=== PATIENT | male | born 1980 | race Two or more races ===

== ENCOUNTER 2018-01-24 08:32 | Emergency (ER) | payer OTHER ==
[2018-01-24] MEDS ORDERED: IBUPROFEN 800 MG TABLET PO ONE (09:04)
--- NOTE | 2018-01-24 09:08 | ER Document Report ---
ED Extremity Problem, Lower - General Chief Complaint: Knee Pain Stated Complaint: KNEE PAIN Time Seen by Provider: 01/24/18 08:57 Mode of Arrival: Ambulatory Information source: Patient Notes: 37-year-old male presents to ED for complaint of left knee pain. He states he was playing soccer run and jump and bending and somehow his knee got injured during the game. He states it is very painful to walk on that leg now. States sometimes it hurts all the way up to the hip from the pain in his knee. Is alert and oriented speaking in full sentences. He speaks Tajik but is able to understand some of what I say his is at the bedside and explained everything that he says. TRAVEL OUTSIDE OF THE [place] IN LAST 30 DAYS: No - HPI Patient complains to provider of: Injury, Pain, Swelling Location: Knee Occurred: Yesterday Where: Outdoors, Sports Onset/Duration: Intermittent Quality of pain: Burning, Sharp Severity: Severe Pain Level: 5 Context: Twisted Recent injury: Yes Associated symptoms: Painful ambulation Exacerbated by: Hanging down, Movement, Walking Relieved by: Elevation, Ice, Rest - Related Data Allergies/Adverse Reactions: No Known Allergies Allergy (Unverified 01/24/18 08:34) Past Medical History - General Information source: Patient - Social History Smoking Status: Never Smoker Cigarette use (# per day): No Chew tobacco use (# tins/day): No Smoking Education Provided: No Frequency of alcohol use: None Drug Abuse: None 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 Lives with: Family Family History: Reviewed & Not Pertinent Patient has suicidal ideation: No Patient has homicidal ideation: No - Past Medical History Cardiac Medical History: Reports: Hx Hypercholesterolemia Pulmonary Medical History: Reports: None EENT Medical History: Reports: None Neurological Medical History: Reports: None Endocrine Medical History: Reports: None Renal/ Medical History: Reports: None Malignancy Medical History: Reports None GI Medical History: Reports: None Musculoskeletal Medical History: Reports None Skin Medical History: Reports None Psychiatric Medical History: Reports: None Traumatic Medical History: Reports: None Infectious Medical History: Reports: None Surgical Hx: Negative Past Surgical History: Reports: None - Immunizations Immunizations up to date: Yes Review of Systems - Review of Systems Constitutional: No symptoms reported EENT: No symptoms reported Cardiovascular: No symptoms reported Respiratory: No symptoms reported Gastrointestinal: No symptoms reported Genitourinary: No symptoms reported Male Genitourinary: No symptoms reported Musculoskeletal: Joint pain - left knee, Joint swelling - Left knee Skin: No symptoms reported Hematologic/Lymphatic: No symptoms reported Neurological/Psychological: No symptoms reported -: Yes All other systems reviewed and negative Physical Exam - Vital signs Vitals: Temp Pulse Resp BP Pulse Ox 99.6 F 56 L 16 126/70 H 96 01/24/18 08:38 01/24/18 08:38 01/24/18 08:38 01/24/18 08:38 01/24/18 08:38 Interpretation: Normal - General General appearance: Appears well, Alert - HEENT Head: Normocephalic, Atraumatic Eyes: Normal Pupils: PERRL - Respiratory Respiratory status: No respiratory distress Chest status: Nontender Breath sounds: Normal Chest palpation: Normal - Cardiovascular Rhythm: Regular Heart sounds: Normal auscultation Murmur: No - Abdominal Inspection: Normal Distension: No distension Bowel sounds: Normal Tenderness: Nontender Organomegaly: No organomegaly - Back Back: Normal, Nontender - Extremities General upper extremity: Normal inspection, Nontender, Normal color, Normal ROM , Normal temperature General lower extremity: Normal color, Normal temperature. No: Maurisio's sign Knee: Tender, Pain with ROM, Patellar tendon intact, Popliteal fossa tender, Tender joint line. No: Unable to bear weight - Pain with ambulation - Neurological Neuro grossly intact: Yes Cognition: Normal Orientation: AAOx4 [place] Coma Scale Eye Opening: Spontaneous [place] Coma Scale Verbal: Oriented [place] Coma Scale Motor: Obeys Commands [place] Coma Scale Total: 15 Speech: Normal Motor strength normal: LUE, RUE, LLE, RLE Sensory: Normal - Psychological Associated symptoms: Normal affect, Normal mood - Skin Skin Temperature: Warm Skin Moisture: Dry Skin Color: Normal Course - Vital Signs Vital signs: Temp Pulse Resp BP Pulse Ox 98.3 F 45 L 16 119/66 96 01/24/18 10:22 01/24/18 10:22 01/24/18 08:38 01/24/18 10:22 01/24/18 10:22 - Diagnostic Test Radiology reviewed: Image reviewed, Reports reviewed Procedures - Immobilization Left Knee Time completed: 10:16 Pre-Proc Neuro Vasc Exam: Normal Immobilizer type: Crutches, Knee immobilizer Performed by: RN Post-Proc Neuro Vasc Exam: Normal Alignment checked and good: Yes Discharge - Discharge Clinical Impression: Knee injury Qualifiers: Encounter type: initial encounter Laterality: left Qualified Code(s): S89.92XA - Unspecified injury of left lower leg, initial encounter Condition: Stable Disposition: HOME, SELF-CARE Additional Instructions: SUSPECTED INTERNAL KNEE INJURY: The examiner of your injured knee suspects an internal injury to the cartilage or internal ligaments. This must be further investigated by an internal controls specialist. The knee should be protected, ice packed, and elevated while awaiting your follow-up exam by the orthopedist. If there is severe swelling, severe pain, or any new symptoms while awaiting your exam, you should call the orthopedist. (If he/she is unavailable, call us or return for re-examination.) KNEE IMMOBILIZING SPLINT: The knee immobilizing splint will protect the injury while healing begins. This type of splint does not allow the knee to bend at all. No running or sports will be possible. If the splint allows painfree walking, it's giving adequate protection. If there is still significant pain, crutches may be needed as well. Don't do anything that hurts. Adjusted the splint, if necessary. The stiffeners on the sides are attached with Velcro, so they can be easily moved to adjust for thigh and calf size. If you need help with these adjustments, come back. You will lose muscle strength in the thigh while using this splint. The doctor will advise you if it's safe to do isometric knee exercises while you use it. USE OF CRUTCHES: The doctor has recommended that you not bear weight at this time. You will need to use crutches. Adjust the crutches so the tops come to about two inches under the armpit while you are standing upright. Use your hands -- not your armpits -- to support your weight. To get into a chair, support yourself with one crutch on the injured side. Hold the chair with the other hand, then lower yourself while putting all your weight on the good leg. Going up stairs is `good leg up, step up, then bring up crutches and bad leg.' Down stairs is `bad leg and crutches down, then bring good leg down.' If you develop numbness or swelling in an arm or hand, you are using the crutches incorrectly. Return if you are having any problems with the crutches. ICE & ELEVATION: Apply ice packs frequently against the painful area. Many different schedules are recommended, such as "20 minutes on, 20 minutes off" or "one hour ice, two hours rest." If you need to work, you may need to go longer between ice treatments. You should plan to have the area ice packed AT LEAST one- fourth of the time. The ice should be applied over the wrap, tape, or splint, or over a layer of cloth -- not directly against the skin. Some ice bags have a built-in cloth and can be put directly on the skin. Your injured part should be elevated as much as possible over the next 48 hours. Try to keep the injury above the level of the heart. Avoid use of the injured area. Elevation and rest will decrease the swelling. USE OF [id number] IBUPROFEN: Ibuprofen (Advil, Nuprin, Medipren, Motrin IB) is a medication for fever and pain control. In addition, it has anti- inflammatory effects which may be beneficial, especially in the treatment of injuries. It's best to take ibuprofen with food. Persons with ulcer disease or allergy to aspirin should notify their physician of this before taking ibuprofen. Ibuprofen can be given every four to six hours, for a total of four doses daily. Age Pain or fever dose Antiinflammatory dose 6-8 yr 200 mg (1 tab) 200 mg (1 tab) 9-11 yr 200 mg (1 tab) 200-400 mg (1-2 tab) 11-14 yr 200-400 mg (1-2 tab) 400 mg (2 tab) 15-adult 400 mg (2 tab) 600 mg (3 tab) FOLLOW-UP CARE: If you have been referred to a physician for follow-up care, call the physician s office for an appointment as you were instructed or within the next two days. If you experience worsening or a significant change in your symptoms, notify the physician immediately or return to the Emergency Department at any time for re-evaluation. Forms: Special Work Note Referrals: [facility] [NO LOCAL MD] - Follow up as needed KAR FREDERICK MD [ACTIVE STAFF] - Follow up as needed
--- NOTE | 2018-01-24 10:04 | RADIOLOGY REPORT (SQ) ---
EXAM DESCRIPTION: KNEE LEFT 4 VIEW COMPLETED DATE/TIME: 01/24/2018 9:30 am REASON FOR STUDY: pain and injury left knee COMPARISON: None. NUMBER OF VIEWS: Four views. TECHNIQUE: AP, lateral, and both oblique radiographic images acquired of the left knee. LIMITATIONS: None. FINDINGS: MINERALIZATION: Normal. BONES: Question small avulsion fragment off the anterior tibial spines from possible ACL injury. Small bony avulsion off the proximal attachment medial collateral ligament from the medial edge media l femoral condyle. Developmental variant with accessory ossification center upper outer quadrant of the patella JOINT: Large suprapatellar knee joint effusion SOFT TISSUES: Medial soft tissue swelling. No radio-opaque foreign body. OTHER: No other significant finding. IMPRESSION: Findings worrisome for acute medial collateral ligament and ACL injury with tiny avulsio n fragments. Large suprapatellar knee joint effusion. Medial knee soft tissue swelling TECHNICAL DOCUMENTATION: JOB ID: [id number] [employer]- All Rights Reserved Reading location - IP/workstation name: [email or web address]
[2018-01-24 10:27] VITALS: BP 119/66
== END 2018-01-24 10:28 | disposition home or self-care (01) ==
LOC: ER 08:32
DX: S89.92XA Unspecified injury of left lower leg, initial encounter (principal); M25.562 Pain in left knee; X58.XXXA Exposure to other specified factors, initial encounter; Y93.66 Activity, soccer; E78.00 Pure hypercholesterolemia, unspecified
CPT/HCPCS: 99283; 73564; L1830

== ENCOUNTER → 2018-01-30 | Outpatient (CLI) | payer OTHER ==
--- NOTE | 2018-01-31 09:35 | RADIOLOGY REPORT (SQ) ---
EXAM DESCRIPTION: MRI LT LOWER JOINT WITHOUT COMPLETED DATE/TIME: 01/30/2018 3:45 pm REASON FOR STUDY: PAIN IN LEFT KNWW M25.569 PAIN IN UNSPECIFIED KNEE COMPARISON: Left knee four views 01/24/2018 TECHNIQUE: Leftknee images acquired and stored on PACS. Multiplanar images include fat sensitive se quences as T1, water sensitive sequences as FST2 or STIR, cartilage sensitive sequences as FSPD, and gradient echo sequences. LIMITATIONS: Motion artifact FINDINGS: JOINT AND BURSAE: Small suprapatellar knee joint effusion. Tiny Dunn's cyst BONE CORTEX AND MARROW: 12 mm diameter osteochondral fracture with minimal depression of the articula r surface, lateral femoral condyle, best shown on sagittal image 19. Minimal edema in the posterior aspect weight-bearing surface medial tibial plateau without depressed fragment. ACL: Torn, best shown on sagittal images 10 through 15. PCL: Intact. MCL: Intact. No periligamentous edema or fluid. Specifically, no acute avulsion is identified LCL: Intact. No periligamentous edema or fluid. MEDIAL MENISCUS: Horizontal tear mid body and posterior horn undersurface medial meniscus without par ameniscal cyst LATERAL MENISCUS: Complex tear posterior horn lateral meniscus best shown on sagittal image 19. No p arameniscal cyst MEDIAL COMPARTMENT: Cartilage preserved. Marrow edema posterior weight-bearing surface medial tibial plateau without depressed fracture. No osteophytes. LATERAL COMPARTMENT: 12 mm diameter osteochondral fracture with minimal depression of the articular s urface, lateral femoral condyle. No osteophytes. PATELLA: No chondromalacia. There is an accessory ossification center in the left upper outer quadra nt patella on axial images 4-7 and coronal image 5. There is mild superimposed osteoarthritis with m ild bony spurring. Cartilage appears intact over the articular surface best shown on axial images 4- 8. No subchondral cysts. Medial and lateral retinacula intact. EXTENSOR MECHANISM: Intact. Quadriceps and patella tendons normal. SOFT TISSUES: Adjacent muscles and subcutaneous tissues normal. Normal flow void in popliteal artery and vein. OTHER: No other significant finding. IMPRESSION: Torn anterior cruciate ligament Medial and lateral meniscal tears Osteochondral injury lateral femoral condyle weight-bearing surface TECHNICAL DOCUMENTATION: JOB ID: [id number] [employer]- All Rights Reserved Reading location - IP/workstation name: [email or web address]
== END ==
LOC: RAD 14:41
PROVIDERS: ATTEND Orthopaedic Surgery
DX: M25.562 Pain in left knee (principal); S83.512A Sprain of anterior cruciate ligament of left knee, initial encounter; X58.XXXA Exposure to other specified factors, initial encounter

== ENCOUNTER 2018-08-19 02:44 | Emergency (ER) | payer OTHER ==
[2018-08-19] MEDS ORDERED: IBUPROFEN 800 MG TABLET PO ONE (05:34)
[2018-08-19] MEDS ORDERED: DEXAMETHASONE SOD PHOS INJ 10 MG/1 ML VIAL IM ONE (05:34)
--- NOTE | 2018-08-19 05:55 | ER Document Report ---
HPI - HPI Time Seen by Provider: 08/19/18 05:28 Pain Level: 5 Context: Patient is a 38-year-old male that comes to the emergency department for chief complaint of sore throat. He states that initially he had congestion, cough, fever but this resolved, now he does has a very sore throat. No obvious sick contacts. No other symptoms at this time. He is able to swallow but with pain. He takes no daily medications, denies smoking, alcohol, recreational drugs. He speaks Omani, requests that his translate for him, she speaks very good Latvian. - CONSTITUTIONAL Constitutional: REPORTS: Fever - EENT EENT: REPORTS: Sore Throat Past Medical History - General Information source: Patient - Social History Smoking Status: Never Smoker Frequency of alcohol use: None Drug Abuse: None Lives with: Family Family History: Reviewed & Not Pertinent Patient has suicidal ideation: No Patient has homicidal ideation: No - Past Medical History Cardiac Medical History: Reports: Hx Hypercholesterolemia Renal/ Medical History: Denies: Hx Peritoneal Dialysis Surgical Hx: Negative - Immunizations Immunizations up to date: Yes Hx Diphtheria, Pertussis, Tetanus Vaccination: Yes Vertical Provider Document - CONSTITUTIONAL General Appearance: WD/WN, No Apparent Distress - INFECTION CONTROL TRAVEL OUTSIDE OF THE [place] IN LAST 30 DAYS: No - HEENT HEENT: Atraumatic, Normocephalic. negative: Normal ENT Exam - Exudates noted on tonsils, tonsils are slightly swollen, no peritonsillar abscess noted, normal uvula, patent airway. Unremarkable sinus and nasal exam. - NECK Neck: Other - Mild bilateral anterior cervical adenopathy, unremarkable otherwise - CARDIOVASCULAR Cardiovascular: Regular Rate, Regular Rhythm - GI/ABDOMEN Gastrointestinal: Abdomen Soft, Abdomen Non-Tender - BACK Back: Normal Inspection - MUSCULOSKELETAL/EXTREMETIES Musculoskeletal/Extremeties: MAEW, FROM, Non-Tender - NEURO Level of Consciousness: Awake, Alert, Appropriate - DERM Integumentary: Warm, Dry, No Rash Course - Re-evaluation Re-evalutation: On physical exam patient has exudative pharyngitis but his examination is normal otherwise except for mild anterior cervical adenopathy. No palpable spleen or painful abdomen. Strep test is negative. He just had viral symptoms. I discussed with patient. This could be viral, decision was made to treat with dexamethasone, ibuprofen, work-release. I discussed return precautions and activity precautions in detail because of possible mono, we have a culture pending of the throat. Discussed results, plan, precautions in detail with patient and significant other. They state understanding and agreement. - Vital Signs Vital signs: Temp Pulse Resp BP Pulse Ox 98.3 F 72 17 130/84 H 97 08/19/18 03:08 08/19/18 03:08 08/19/18 03:08 08/19/18 03:08 08/19/18 03:08 Discharge - Discharge Clinical Impression: Exudative pharyngitis Condition: Stable Disposition: HOME, SELF-CARE Additional Instructions: Noe prueba de estreptococo fue negativa Alie es probablemente un virus, esto debera desaparecer con el tiempo. Descansa, shana muchos lquidos, latha ibuprofeno. Te dieron Decadron para ayudarte con tu garganta. Debe tener cuidado de evitar dorota lesin abdominal sonam las prximas semanas (noe bazo puede hincharse con esta enfermedad y romperse). Regrese si est peor (tiene fiebre nuevamente, noe garganta empeora, tiene dolor abdominal intenso o cualquier otro sntoma relacionado con los sntomas). Prescriptions: Ibuprofen [Ibu] 800 mg PO TID PRN #30 tablet PRN Reason: Forms: Return to Work
[2018-08-19 06:42] VITALS: BP 128/70
== END 2018-08-19 06:42 | disposition home or self-care (01) ==
LOC: ER 02:44
DX: J02.9 Acute pharyngitis, unspecified (principal); J35.1 Hypertrophy of tonsils; R59.0 Localized enlarged lymph nodes
CPT/HCPCS: 99283; 96372; 87070; 87880; J1100